=== PATIENT | female | born 2000 | race Caucasian/White ===

== ENCOUNTER 2021-05-18 15:17 | Emergency (ER) | payer BC ==
[2021-05-18] MEDS ORDERED: Sodium Chloride 0.9% 10 ML Syringe FLUSH PRN (15:32)
--- NOTE | 2021-05-18 15:41 | EDM.PDOC ---
ED HPI GENERAL MEDICAL PROBLEM - General Chief Complaint: MANAGER MORTGAGE Problem Stated Complaint: Post-Op tacycardia and abdomainal pain Time Seen by Provider: 05/18/21 15:23 Source of Information: Reports: Patient - History of Present Illness INITIAL COMMENTS - FREE TEXT/NARRATIVE: Brisa is a 20 y/o who is now 4 days post op from a Repeat that she had done at [facility] in [place]. She reports that he stay was fairly uneventful and she felt fine until today. She did report though that her hemoglobin was 11 and dropped to 7.5 in the hospital, but she denied that she had any bleeding issues. She was started on iron and also given Injectafer while in the hospital. She denied that she felt wek or dizzy in the hospital, but now she is getting very lightheaded and dizzy and she feels weaker and weaker and can hardly nurse her baby. She is not feeling well and it is hard to stand up. She is having increased vaginal bleeding and passing clots at times. Yesterday the bleeding was heavier than today. She has went into the [facility] and they ordered labs to be done, but then she came here to the ER. She was given Oxycodone for pain, but has not taken any of that since yesterday. Her OBGYN is Dr Dionne Ramos in [place]. - Related Data Home Meds: Home Meds oxyCODONE HCl [Oxycodone HCl] 30 mg PO Q4H PRN 05/18/21 [History] Past Medical History - Past Health History Medical/Surgical History: Denies Medical/Surgical History HEENT History: Reports: Impaired Vision Cardiovascular History: Reports: Other (See Below) Other Cardiovascular History: POTS Gastrointestinal History: Reports: Chronic Constipation Genitourinary History: Reports: None MANAGER MORTGAGE History: Reports: Dysfunctional Uterine Bleeding Musculoskeletal History: Reports: Connective Tissue Disease Neurological History: Reports: Other (See Below) Other Neuro History: episodes of L sided weakness that resolve on own after several days Psychiatric History: Reports: Anxiety, Depression, Mood Swings, Other (See Below) Other Psychiatric History: possible adhd or bipolar Endocrine/Metabolic History: Reports: Vitamin D Deficiency Hematologic History: Reports: Bleeding Disorder, Other (See Below) Other Hematologic History: autonomic dysfunction Dermatologic History: Reports: None - Infectious Disease History Infectious Disease History: Reports: Influenza, Other (See Below) Other Infectious Disease History: rotovirus - Past Surgical History HEENT Surgical History: Reports: Oral Surgery GI Surgical History: Reports: Other (See Below) Social & Family History - Family History Family Medical History: No Pertinent Family History - Caffeine Use Caffeine Use: Reports: Coffee, Soda - Living Situation & Occupation Living situation: Reports: with Family Occupation: Student Review of Systems - Review of Systems Review Of Systems: See Below Constitutional: Reports: Weakness Eyes: Reports: No Symptoms Ears: Reports: Dizziness Nose: Reports: No Symptoms Mouth/Throat: Reports: No Symptoms Respiratory: Reports: No Symptoms Cardiovascular: Reports: No Symptoms GI/Abdominal: Reports: Decreased Appetite Genitourinary: Reports: No Symptoms Musculoskeletal: Reports: No Symptoms Skin: Reports: Pallor Neurological: Reports: Dizziness, Headache, Weakness Psychiatric: Reports: No Symptoms ED EXAM, GENERAL - Physical Exam Exam: See Below General Appearance: Alert, WD/WN (Adult female, looks like she doesn't feel well.) Ears: Hearing Grossly Normal Nose: Normal Inspection Throat/Mouth: Normal Inspection, Normal Lips, Normal Oropharynx, Normal Voice Head: Atraumatic, Normocephalic Neck: Supple Respiratory/Chest: No Respiratory Distress, Lungs Clear, Chest Non-Tender Cardiovascular: Normal Peripheral Pulses, No Murmur, Tachycardia GI/Abdominal: Normal Bowel Sounds, Soft, Other (Note low transverse surgical incision is intact with steri strip, open to air and no redness or drainage noted; fundus firm at U/1. Note flat, erythematous rash to upper abdomen region.) (Female) Exam: Normal External Exam Rectal (Female) Exam: Deferred Back Exam: Normal Inspection, Full Range of Motion Extremities: Normal Inspection, No Pedal Edema Neurological: Alert, Oriented, CN II-XII Intact, Normal Cognition, Normal Gait, No Motor/Sensory Deficits Psychiatric: Normal Affect Skin Exam: Warm, Dry, Pallor Lymphatic: No Adenopathy Course - Vital Signs Text/Narrative:: 1523 The patient was seen by the [facility]. Additional labs ordered from [facility] labs that were pending.. Noted that she was tachycardic in the 108-120s on arrival and IV fluids were started. 1705 Labs reviewed. CBC Hgb=8.7, Hct=28.6; CMP neg. UA neg. COVID/Flu A- B/RSV=all neg. Pulse of still 110s. BP normal, no fever. Note rash to abdomen, but incision petty snot appear infected. Have not observed any increased vaginal bleeding while pt in the ER. Will give her a second liter of IV fluids at this time to see if we can get her tachycardia resolved. 1800 APAP 1gm po given for pain. HR remains 108, BP stable. No sx of bleeding. Labs neg for infection. Patient actually looks like she has some color back in h er cheeks after the IV fluids. She was having more pain and Oxycodone 5mg po given in the ER. Will send her home tonight to rest, suspect she is tired with the 3 small children at home and benig a post op patient herself. All exacerbated by anemia. Will have her touch base with her OB tomorrow. Written instructions were given and she left the ER in stable condition. Last Recorded V/S: Last Vital Signs Temp 36.9 C 05/18/21 15:25 Pulse 114 H 05/18/21 16:25 Resp 20 05/18/21 15:25 BP 112/59 L 05/18/21 16:25 Pulse Ox 100 05/18/21 15:25 - Orders/Labs/Meds Orders: Active Orders 24 hr Category Date Time Status Lactated Ringers [Ringers, Lactated] 1,000 ml Med 05/18/21 15:45 Active IV ASDIRECTED Lactated Ringers [Ringers, Lactated] 1,000 ml Med 05/18/21 17:15 Active IV ASDIRECTED Sodium Chloride 0.9% [Saline Flush] Med 05/18/21 15:32 Active 10 ml FLUSH ASDIRECTED PRN oxyCODONE Med 05/18/21 18:14 Once 5 mg PO ONETIME ONE Saline Lock Insert [OM.PC] Stat Oth 05/18/21 15:32 Ordered Medication Orders Lactated Ringer's (Ringers, Lactated) 1,000 mls @ 999 mls/hr IV ASDIRECTED PRANEETH Last Admin: 05/18/21 17:09 Dose: 999 mls/hr Documented by: [id number] Infusion: 05/18/21 16:43 Dose: 999 mls/hr Documented by: [id number] Admin: 05/18/21 15:42 Dose: 999 mls/hr Documented by: [email or web address] Lactated Ringer's (Ringers, Lactated) 1,000 mls @ 150 mls/hr IV ASDIRECTED PRANEETH Sodium Chloride (Sodium Chloride 0.9% 10 Ml Syringe) 10 ml FLUSH ASDIRECTED PRN PRN Reason: Keep Vein Open Labs: Laboratory Tests 05/18/21 05/18/21 05/18/21 Range/Units 15:20 15:33 15:53 C-Reactive Protein 2.6 H (<=0.9) mg/dL Specimen Type Urincath Urine Color Yellow Urine Appearance Clear Urine pH 7.5 (5.0-9.0) Ur Specific Ada 1.020 (1.005-1.030) Urine Protein Negative (NEGATIVE) mg/dL Urine Glucose (UA) Negative (NEGATIVE) mg/dL Urine Ketones Negative (NEGATIVE) mg/dL Urine Occult Blood Negative (NEGATIVE) Urine Nitrite Negative (NEGATIVE) Urine Bilirubin Negative (NEGATIVE) Urine Urobilinogen 0.2 (0.2-1.0) E.U./dL Ur Leukocyte Esterase Negative (NEGATIVE) Influenza Type A RNA Negative (NEGATIVE) RSV RNA (INAAT) Negative (NEGATIVE) Influenza Type B RNA Negative (NEGATIVE) SARS-CoV-2 RNA (MIR) Negative (NEGATIVE) Meds: Medications Generic Name Dose Route Start Last Admin Trade Name Freq PRN Reason Stop Dose Admin Lactated Ringer's 1,000 mls @ 999 mls/hr 05/18/21 15:45 05/18/21 17:09 Ringers, Lactated IV 999 mls/hr ASDIRECTED PRANEETH Administration Lactated Ringer's 1,000 mls @ 150 mls/hr 05/18/21 17:15 Ringers, Lactated IV ASDIRECTED PRANEETH Sodium Chloride 10 ml 05/18/21 15:32 Sodium Chloride 0.9% 10 Ml Syringe FLUSH ASDIRECTED PRN Keep Vein Open Discontinued Medications Generic Name Dose Route Start Last Admin Trade Name Freq PRN Reason Stop Dose Admin Acetaminophen 1,000 mg 05/18/21 17:54 05/18/21 18:00 Acetaminophen 500 Mg Tab PO 05/18/21 17:55 1,000 mg ONETIME ONE Administration Departure - Departure Time of Disposition: 18:14 Disposition: Home, Self-Care 01 Clinical Impression: S/P , Weakness, Rash - Discharge Information Instructions: Care After Delivery Referrals: Jennifer Ni MD [Ordering Only Provider] - Forms: ED Department Discharge Additional Instructions: -Resume all meds -Rest as much as you can -Call your OBGYN tomorrow for recheck or other concerns. Advise them that you were seen here in the ER. -If any symptoms are worse or other concerns, return to the ER. -Monitor the rash on your abdomen and report further worsening of the condition Sepsis Event Note (ED) - Focused Exam Vital Signs: Vital Signs Temp Pulse Resp BP Pulse Ox 05/18/21 16:25 114 H 112/59 L 05/18/21 15:55 109 H 113/67 05/18/21 15:25 36.9 C 120 H 20 112/68 100 - Problem List & Annotations (1) S/P SNOMED Code(s): 985700995, 416288959 Code(s): Z98.891 - HISTORY OF UTERINE SCAR FROM PREVIOUS SURGERY Status: Acute Current Visit: Yes Annotation/Comment:: POD #4 from Repeat CS at [facility] for term . Anemia noted during hospitalizationa she was given IV iron from her report while on the unit. Labs negative. IV fluids given and she felt better. (2) Weakness SNOMED Code(s): 09032461 Code(s): R53.1 - WEAKNESS Status: Acute Current Visit: Yes (3) Rash SNOMED Code(s): 570425543, 124815677 Code(s): R21 - RASH AND OTHER NONSPECIFIC SKIN ERUPTION Status: Acute Current Visit: Yes Annotation/Comment:: Monitor rash on upper abdomen. Did not appear to be related to surgical incision. - Problem List Review Problem List Initiated/Reviewed/Updated: Yes - My Orders Last 24 Hours: My Active Orders 05/18/21 15:32 Sodium Chloride 0.9% [Saline Flush] 10 ml FLUSH ASDIRECTED PRN Saline Lock Insert [OM.PC] Stat 05/18/21 15:45 Lactated Ringers [Ringers, Lactated] 1,000 ml IV ASDIRECTED 05/18/21 17:15 Lactated Ringers [Ringers, Lactated] 1,000 ml IV ASDIRECTED 05/18/21 18:14 oxyCODONE 5 mg PO ONETIME ONE - Assessment/Plan Last 24 Hours: My Active Orders 05/18/21 15:32 Sodium Chloride 0.9% [Saline Flush] 10 ml FLUSH ASDIRECTED PRN Saline Lock Insert [OM.PC] Stat 05/18/21 15:45 Lactated Ringers [Ringers, Lactated] 1,000 ml IV ASDIRECTED 05/18/21 17:15 Lactated Ringers [Ringers, Lactated] 1,000 ml IV ASDIRECTED 05/18/21 18:14 oxyCODONE 5 mg PO ONETIME ONE Plan: As above FU with OBGYN tomorrow
[2021-05-18] MEDS: Lactated Ringers 1,000 ML IV SCH ×2 (15:42→17:09)
[2021-05-18 16:28] LABS: CORONAVIRUS COVID-19 NAA NEGATIVE (NEGATIVE); RESPIRATORY SYNCYTIAL VIR NAA NEGATIVE (NEGATIVE)
[2021-05-18] MEDS ORDERED: Lactated Ringers 1,000 ML IV SCH (17:15)
[2021-05-18] MEDS ORDERED: Acetaminophen 500 MG Tab PO ONE (17:54)
[2021-05-18] MEDS ORDERED: oxyCODONE 5 MG Tab PO ONE (18:14)
[2021-05-18 19:19] VITALS: BP 126/88; PULSE 105
== END 2021-05-18 18:25 | disposition home or self-care (01) ==
LOC: LL.ED 15:17
DX: O90.89 Other complications of the puerperium, not elsewhere classified (principal); R53.1 Weakness; R21 Rash and other nonspecific skin eruption; Z98.890 Other specified postprocedural states; Z20.822 Contact with and (suspected) exposure to COVID-19
CPT/HCPCS: 0241U; 36415; 81003; 86140; 99283; 99284; A9270-GY; J7120

== ENCOUNTER 2024-12-16 19:20 | Emergency (ER) | payer BC ==
[2024-12-16 19:40] LABS: BASOPHILS ABSOLUTE AUTO 0.02 K/uL (0.00-0.20); BASOPHILS PERCENT AUTO 0.2 % (0.0-2.0); EOSINOPHILS ABSOLUTE AUTO 0.07 K/uL (0.00-0.50); EOSINOPHILS PERCENT AUTO 0.8 % (0.0-5.0); IMMATURE GRAN ABSOLUTE AUTO 0.01 10^3/uL (0.00-0.04); IMMATURE GRAN PERCENT AUTO 0.1 % (0.0-0.4); LYMPHOCYTES ABSOLUTE AUTO 1.98 K/uL (0.50-3.50); LYMPHOCYTES PERCENT AUTO 23.0 % (10.0-50.0); MONOCYTES ABSOLUTE AUTO 0.44 K/uL (0.00-1.00); MONOCYTES PERCENT AUTO 5.1 % (2.0-14.0); NEUTROPHILS ABSOLUTE AUTO 6.10 K/uL (1.40-7.00); NEUTROPHILS PERCENT AUTO 70.8 % (45.0-80.0); PLATELET COUNT,PLT 194 K/uL (150-350); RED BLOOD CELL COUNT 4.31 M/uL (3.77-5.09); RED CELL DISTRIBUTION WIDTH 12.4 % (11.2-14.1); WHITE BLOOD CELL COUNT,WBC 8.6 K/uL (4.0-10.2)
[2024-12-16 19:43] LABS: GLUCOSE,URINE NEGATIVE (NEGATIVE); OCCULT BLOOD,URINE LARGE (NEGATIVE)
[2024-12-16 19:54] LABS: APPEARANCE,URINE TURBID
[2024-12-16 19:55] LABS: ALANINE AMINOTRANSFERASE,ALT 41 U/L (12-78); ASPARTATE AMNIOTRANSFERASE,AST 31 U/L (15-37); BILIRUBIN TOTAL 0.4 mg/dL (0.2-1.0); BLOOD UREA NITROGEN,BUN 10 mg/dL (7-18); CARBON DIOXIDE,CO2 27.8 mmol/L (21.0-32.0); CHLORIDE,CL 104 mmol/L (98-107); CREATININE 0.85 mg/dL (0.51-1.17); GLUCOSE RANDOM 80 mg/dL (70-99); POTASSIUM,K 3.6 mmol/L (3.5-5.1); PROTEIN TOTAL,TP 6.5 g/dL (6.4-8.2); SODIUM,NA 137 mmol/L (136-145)
[2024-12-16 19:56] LABS: ESTIMATED GFR 97 mL/min (>=60)
[2024-12-16] MEDS: Take Home: Phenazopyridine 95 MG Tab, 4 Tab Pack PO ONE (20:08)
[2024-12-16] MEDS: Take Home: Nitrofurantoin Monohydrate/Macrocrystalline 100 MG, 6 Cap Pack PO ONE (20:08)
[2024-12-16 20:29] VITALS: BP 128/68; PULSE 88
== END 2024-12-16 20:10 | disposition home or self-care (01) ==
LOC: LL.ED 19:20
DX: N39.0 Urinary tract infection, site not specified (principal); Z79.899 Other long term (current) drug therapy
CPT/HCPCS: 36415; 80053; 81001; 85025; 87086; 87088; 87186; 99283; A9270